=== PATIENT | female | born 1995 | race African-American/Black ===

== ENCOUNTER 2017-07-12 13:30 | Emergency (ER) | payer OTHER | END 2017-07-12 14:41 | disposition home or self-care (01) | LOC: ERS 13:30 | DX: J31.0 Chronic rhinitis (principal); R59.0 Localized enlarged lymph nodes | CPT/HCPCS: 99283 ==

== ENCOUNTER 2018-10-31 17:57 | Emergency (ER) | payer OTHER | END 2018-10-31 20:10 | disposition home or self-care (01) | LOC: ERS 17:57 | DX: K11.20 Sialoadenitis, unspecified (principal) | CPT/HCPCS: 87081; 87430; 99283 ==

== ENCOUNTER 2018-11-01 19:51 | Emergency (ER) | payer OTHER | END 2018-11-01 20:24 | disposition home or self-care (01) | LOC: ERS 19:51 | DX: L01.00 Impetigo, unspecified (principal) | CPT/HCPCS: 99282 ==

== ENCOUNTER 2021-04-29 09:02 | Emergency (ER) | payer BC, SELFPAY ==
[2021-04-29 18:40] LABS: SARS-CoV-2 PCR by NAA Not Detected (NotDetected)
== END 2021-04-29 10:04 | disposition home or self-care (01) ==
LOC: ERS 09:02
DX: J02.9 Acute pharyngitis, unspecified (principal); M79.10 Myalgia, unspecified site; R50.9 Fever, unspecified; R19.7 Diarrhea, unspecified; R11.10 Vomiting, unspecified; Z20.822 Contact with and (suspected) exposure to COVID-19
CPT/HCPCS: 87804; 99283; U0003; U0005

== ENCOUNTER 2022-06-16 19:23 | Emergency (ER) | payer BC ==
[2022-06-16 20:35] LABS: Bilirubin Negative (Negative); Blood, Urine Negative (Negative); Clarity Clear (Clear); Glucose, Urine (Dipstick) 50 mg/dL (Negative); Ketone, Urine Negative (Negative); Leukocyte Negative Leu/uL (Negative); Nitrite Negative (Negative); Protein, Urine (Dipstick) 10 mg/dL (Neg-Trace); Specific Gravity, Urine 1.025 (1.002-1.036)
[2022-06-16 21:22] LABS: Mean Corpuscular HGB CONC 32.9 g/dL (32.0-36.0); Mean Corpuscular Hemoglobin 22.2 pg (27.0-31.0); Mean Corpuscular Volume 67.6 fl (78.0-98.0); Mean Platelet Volume 9.3 fL (7.4-10.4); Platelet Count 220 10x3/uL (130-400); RBC Distribution Width 15.6 % (11.5-14.5); Red Blood Cell (RBC) Count 4.95 mill/uL (4.20-5.40); White Blood Cell (WBC) Count 9.6 10x3/uL (4.8-10.8)
[2022-06-16 21:35] LABS: Chloride 104 mmol/L (98-107); Potassium 4.1 mmol/L (3.5-5.1); Sodium 131 mmol/L (136-145)
[2022-06-16 21:36] LABS: Albumin 4.3 g/dL (3.5-5.0)
[2022-06-16 21:37] LABS: Calcium 9.5 mg/dL (7.8-10.44)
[2022-06-16 21:38] LABS: Globulin 3.9 g/dL (2.4-3.5); Glucose 92 mg/dL (70-105); Protein, Total 8.2 g/dL (6.0-8.3)
[2022-06-16 21:40] LABS: Bilirubin, Total 0.2 mg/dL (0.2-1.2); Carbon Dioxide 15 mmol/L (22-29)
[2022-06-16 21:41] LABS: Alkaline Phosphatase 105 U/L (40-110)
[2022-06-16 21:42] LABS: BUN (Urea Nitrogen) 7 mg/dL (7.0-18.7); Calc. Creatinine Clearance 0 mL/min (70-130); Estimated GFR 122
[2022-06-16 21:43] LABS: AST (SGOT) 14 U/L (5-34)
[2022-06-16 21:44] LABS: ALT (SGPT) 10 U/L (8-55); Lipase 16 U/L (8-78)
[2022-06-16 21:45] LABS: #Eosinphils 0.3 thou/uL (0.0-0.7); #Lymphocytes 3.5 thou/uL (1.20-3.40); #Monocytes 0.5 thou/uL (0.11-0.59); #Neutrophils 5.2 thou/uL (1.40-6.50); %Basophils 0.5 % (0.0-1.0); %Eosinophils 3.1 % (0.0-10.0); %Lymphocytes 36.4 % (21.0-51.0); %Monocytes 5.3 % (0.0-10.0); %Neutrophils 54.8 % (42.0-75.0); MDiff Complete? YES; Microcytosis SLIGHT = 6-15 cells (100X) (0-5/hpf)
[2022-06-16 22:03] LABS: Anion Gap 16 mmol/L (10-20)
== END 2022-06-16 23:10 | disposition home or self-care (01) ==
LOC: ERS 19:23
DX: O99.891 Other specified diseases and conditions complicating pregnancy (principal); R10.30 Lower abdominal pain, unspecified; O10.911 Unspecified pre-existing hypertension complicating pregnancy, first trimester; Z3A.11 11 weeks gestation of pregnancy
CPT/HCPCS: 36415; 76856; 80053; 81003; 83690; 84702; 85025; 86900; 86901; 93976; 99283